=== PATIENT | male | born 1955 | race Caucasian/White ===

== ENCOUNTER 2016-06-16 12:22 | Outpatient (CLI) | payer MEDICARE, OTHER ==
[~2016-06-16 12:22] MED LIST: AMLO5TAB4 PO; ASPI81TA2 PO; BLOO-129 IN; BRIM5DRO EACHEYE; CALC625T15 PO; CHOL400T15 PO; FLUD0.1T3 PO; GLYC30DR4 EACHEYE; INSU100V27 SQ; INSU100V7 SQ; METO-302 PO; MULT-70 PO; OXYC-164 PO; OXYC10TA72 PO; PRED5TAB PO; SIMV20TA6 PO; TACR1CAP PO
== END 2016-06-16 23:59 | disposition home or self-care (01) ==
LOC: WOU 12:22
PROVIDERS: ATTEND Podiatrist Foot & Ankle Surgery
DX: T81.89XD Other complications of procedures, not elsewhere classified, subsequent encounter (principal)
CPT/HCPCS: A6209; A6253; A6402; G0463